=== PATIENT | male | born 1995 ===

== ENCOUNTER 2023-03-16 22:46 | Emergency (ER) | payer BC, OTHER ==
[~2023-03-16] VITALS: Ht 170.2 cm; Wt 79.0 kg
[2023-03-16 22:56] VITALS: BP 136/62; PULSE 61; TEMP 97.3
[2023-03-16 23:01] VITALS: RESP 16; O2SAT 99
[2023-03-17] MEDS ORDERED: diphenhdrAMINE HCL 25 MG CAP PO ONE
[2023-03-17] MEDS ORDERED: DexAMETHasone SOD PHOS 10MG/1ML VIAL INJ IM ONE
[2023-03-17] MEDS ORDERED: FAMOTIDINE 20 MG TAB PO ONE
[2023-03-17] MEDS ORDERED: FAMO20TA10 PO (00:04)
[2023-03-17] MEDS ORDERED: PRED20TA2 PO (00:04)
[2023-03-17] MEDS ORDERED: DIPH25CA66 PO (00:04)
== END 2023-03-17 00:16 | disposition home or self-care (01) ==
LOC: ER 22:46
DX: L50.0 Allergic urticaria (principal)
CPT/HCPCS: 96372; 99283; J1100